=== PATIENT | female | born 1965 | race Hispanic/Latino ===

== ENCOUNTER 2016-12-22 10:01 | Emergency (ER) | payer SELFPAY ==
--- NOTE | 2016-12-22 11:33 | RAD ---
LEFT KNEE 4 VIEWS: Date: 12/22/16 HISTORY: Leg pain. Back pain. COMPARISON: None. FINDINGS: No significant joint effusion. There appears to be an enthesophyte of the medial tibial spine. No ac [place] fracture is appreciated. IMPRESSION: 1. No acute fracture or malalignment. 2. Likely enthesophyte of the medial tibial spine may be sequelae of prior trauma or internal deran gement. POS: [facility]
--- NOTE | 2016-12-22 11:35 | RAD ---
THREE VIEWS LEFT FOOT: Date: 12-22-16 Comparison: None. History: Leg pain, hip pain, and back pain. FINDINGS: Lateral examination demonstrates significant midfoot degenerative change with dorsally projecting mi dfoot osteophytes. There is enthesophyte formation at the insertion of the Achilles tendon and origi n of the plantar aponeurosis. No acute fracture or evidence of dislocation is noted. IMPRESSION: Calcaneal spurring and midfoot degenerative change. No displaced fracture or evidence of dislocation seen. POS: [facility]
--- NOTE | 2016-12-22 11:37 | RAD ---
FOUR VIEWS RIGHT KNEE: Date: 12-22-16 Comparison: 10-28-14 History: Right knee pain. FINDINGS: There is patellofemoral joint space narrowing with posterior patellar osteophyte formation, unchange d. No knee joint effusion. No displaced fracture or dislocation. Mild medial and lateral tibial plat eau osteophyte noted. IMPRESSION: No acute osseous abnormality. Stable degenerative change. POS: [facility]
[2016-12-22] MEDS ORDERED: Ketorolac Tromethamine 60 MG/2 ML VIAL ONE (11:55)
== END 2016-12-22 12:26 | disposition home or self-care (01) ==
LOC: ERS 10:01
DX: M25.562 Pain in left knee (principal); M25.561 Pain in right knee; M25.572 Pain in left ankle and joints of left foot; I10 Essential (primary) hypertension; E11.9 Type 2 diabetes mellitus without complications; Z79.84 Long term (current) use of oral hypoglycemic drugs
CPT/HCPCS: 36416; 96372; J1885

== ENCOUNTER 2019-05-29 09:27 | Emergency (ER) | payer BC, OTHER | END 2019-05-29 10:35 | disposition home or self-care (01) | LOC: ERS 09:27 | DX: J30.9 Allergic rhinitis, unspecified (principal); Z20.828 Contact with and (suspected) exposure to other viral communicable diseases; I10 Essential (primary) hypertension; E11.9 Type 2 diabetes mellitus without complications | CPT/HCPCS: 99283; U0001 ==

== ENCOUNTER 2020-07-02 08:25 | Emergency (ER) | payer BC ==
[2020-07-02 08:46] LABS: Bilirubin Negative (Negative); Blood, Urine Negative (Negative); Clarity Clear (Clear); Glucose, Urine (Dipstick) Greater than 1000 mg/dL (Negative); Ketone, Urine Negative (Negative); Leukocyte Negative Leu/uL (Negative); Nitrite Negative (Negative); Protein, Urine (Dipstick) Negative (Neg-Trace); Specific Gravity, Urine 1.034 (1.002-1.036); Urobilinogen Normal mg/dL (Less than 2)
[2020-07-02 09:05] LABS: #Basophils 0.1 thou/uL (0.0-0.2); #Eosinphils 0.1 thou/uL (0.0-0.7); #Lymphocytes 2.1 thou/uL (1.20-3.40); #Monocytes 0.4 thou/uL (0.11-0.59); #Neutrophils 3.5 thou/uL (1.40-6.50); %Basophils 0.9 % (0.0-1.0); %Lymphocytes 34.1 % (21.0-51.0); %Monocytes 5.9 % (0.0-10.0); %Neutrophils 57.1 % (42.0-75.0); Hemoglobin 12.6 g/dL (12.0-16.0); Mean Corpuscular HGB CONC 33.1 g/dL (32.0-36.0); Mean Corpuscular Hemoglobin 31.1 pg (27.0-31.0); Mean Corpuscular Volume 93.9 fL (78.0-98.0); Mean Platelet Volume 8.4 fL (7.4-10.4); Platelet Count 297 thou/uL (130-400); RBC Distribution Width 11.6 % (11.5-14.5); Red Blood Cell (RBC) Count 4.06 mill/uL (4.20-5.40); White Blood Cell (WBC) Count 6.2 thou/uL (4.8-10.8)
[2020-07-02] MEDS ORDERED: Acetaminophen 500 MG TAB ONE (09:19)
[2020-07-02] MEDS ORDERED: Ibuprofen 200 MG TAB ONE (09:19)
[2020-07-02 09:28] LABS: ALT (SGPT) 68 U/L (8-55); AST (SGOT) 100 U/L (5-34); Albumin 3.7 g/dL (3.5-5.0); Alkaline Phosphatase 110 U/L (40-110); Anion Gap 15 mmol/L (10-20); BUN (Urea Nitrogen) 9 mg/dL (9.8-20.1); Bilirubin, Total 0.5 mg/dL (0.2-1.2); Calc. Creatinine Clearance 0 mL/min (70-130); Calcium 9.1 mg/dL (7.8-10.44); Carbon Dioxide 23 mmol/L (22-29); Chloride 100 mmol/L (98-107); Globulin 4.4 g/dL (2.4-3.5); Glucose 373 mg/dL (70-105); Protein, Total 8.1 g/dL (6.0-8.3); Sodium 134 mmol/L (136-145)
[2020-07-02 15:32] LABS: SARS-CoV-2 PCR by NAA Not Detected (NotDetected)
== END 2020-07-02 10:11 | disposition home or self-care (01) ==
LOC: ERS 08:25
DX: E11.65 Type 2 diabetes mellitus with hyperglycemia (principal); I10 Essential (primary) hypertension; E86.0 Dehydration
CPT/HCPCS: 36415; 71045; 80053; 81003; 84484; 85025; 87635; 93005; U0003; U0005

== ENCOUNTER 2023-04-10 08:18 | Emergency (ER) | payer BC ==
[2023-04-10 09:01] LABS: #Eosinphils 0.1 thou/uL (0.0-0.7); #Monocytes 0.5 thou/uL (0.11-0.59); %Basophils 0.5 % (0.0-1.0); %Eosinophils 1.6 % (0.0-10.0); %Lymphocytes 24.7 % (21.0-51.0); %Monocytes 6.5 % (0.0-10.0); %Neutrophils 66.6 % (42.0-75.0); Hematocrit 40.7 % (36.0-47.0); Hemoglobin 13.6 g/dL (12.0-16.0); Mean Corpuscular HGB CONC 33.4 g/dL (32.0-36.0); Mean Corpuscular Hemoglobin 31.2 pg (27.0-31.0); Mean Corpuscular Volume 93.3 fl (78.0-98.0); Mean Platelet Volume 9.9 fL (7.4-10.4); Platelet Count 379 10x3/uL (130-400); RBC Distribution Width 13.1 % (11.5-14.5); Red Blood Cell (RBC) Count 4.36 mill/uL (4.20-5.40); White Blood Cell (WBC) Count 7.5 10x3/uL (4.8-10.8)
[2023-04-10 09:23] LABS: ALT (SGPT) 38 U/L (8-55); AST (SGOT) 51 U/L (5-34); Albumin 4.3 g/dL (3.5-5.0); Alkaline Phosphatase 91 U/L (40-110); Anion Gap 17 mmol/L (10-20); BUN (Urea Nitrogen) 18 mg/dL (9.8-20.1); Bilirubin, Total 0.6 mg/dL (0.2-1.2); Calc. Creatinine Clearance 0 mL/min (70-130); Calcium 9.7 mg/dL (7.8-10.44); Carbon Dioxide 27 mmol/L (22-29); Chloride 96 mmol/L (98-107); Estimated GFR 63; Globulin 5.4 g/dL (2.4-3.5); Glucose 269 mg/dL (70-105); Potassium 4.2 mmol/L (3.5-5.1); Protein, Total 9.7 g/dL (6.0-8.3); Sodium 136 mmol/L (136-145)
[2023-04-10 09:26] LABS: Actual Bicarbonate (HCO3v) 26.1 mEq/L (22-28); Analyzer IN Cardio ER; Base Excess 0.6 mEq/L (-2.0 to +3.0); Calcium, Ionized (venous) 1.08 mmol/L (1.16-1.32); Chloride (VBG) 97 mmol/L (98-106); Hematocrit-VBG 41 % (36.0-47.0); Potassium (VBG) 3.94 mmol/L (3.70-5.30); Sodium 137 mmol/L (133-146); pH (venous) 7.381 (7.32-7.43)
[2023-04-10 09:54] LABS: Lipase 45 U/L (8-78); Magnesium 2.8 mg/dL (1.6-2.6)
[2023-04-10] MEDS ORDERED: Ketorolac Tromethamine 30 MG (1 mL) VIAL ONE (10:24)
== END 2023-04-10 12:41 | disposition home or self-care (01) ==
LOC: ERS 08:18
DX: E11.65 Type 2 diabetes mellitus with hyperglycemia (principal); R51.9 Headache, unspecified; R53.83 Other fatigue; I10 Essential (primary) hypertension
CPT/HCPCS: 36415; 71045; 80053; 82010; 82805; 83690; 83735; 84443; 85025; 93005; 94760; 96361; 96374; J1885